=== PATIENT | female | born 1965 | race Caucasian/White ===

== ENCOUNTER 2021-03-14 17:59 | Emergency (ER) | payer OTHER ==
[2021-03-14 18:06] VITALS: BP 157/80; PULSE 80; TEMP 98.5; BMI 33.2
[2021-03-14] MEDS ORDERED: LIDOCAINE 5% TOPICAL PATCH TP ONE (19:49)
[2021-03-14] MEDS ORDERED: CYCLOBENZAPRINE HCL 10 MG TABLET (FP) PO ONE (19:49)
[2021-03-14] MEDS ORDERED: CYCLOBENZAPRINE HCL 10 MG TABLET (FP) ONE (20:10)
[2021-03-14] MEDS ORDERED: LIDOCAINE 5% TOPICAL PATCH ONE (20:10)
[2021-03-14] MEDS ORDERED: LIDOCAINE PATCH REMOVAL MC SCH (22:00)
== END 2021-03-14 20:42 | disposition home or self-care (01) ==
LOC: JERFT 17:59
DX: M54.31 Sciatica, right side (principal)
CPT/HCPCS: 99283-25

== ENCOUNTER 2025-03-07 10:55 | Day surgery (SDC) | payer OTHER ==
[2025-03-02 15:14] VITALS: BMI 37.3
[2025-03-07 11:27] VITALS: TEMP 97.6
[2025-03-07] MEDS ORDERED: LIDOCAINE HCL/PF 2% SDV 5ML VIAL ONE (12:19)
[2025-03-07 13:28] VITALS: RESP 16
[2025-03-07 13:33] VITALS: BP 133/78; PULSE 66
== END 2025-03-07 13:20 | disposition home or self-care (01) ==
LOC: FASU-ENDO 10:55
PROVIDERS: ATTEND Internal Medicine Gastroenterology
PROC: 0DB68ZX Excision of Stomach, Via Natural or Artificial Opening Endoscopic, Diagnostic (ICD-10-PCS; 2025-03-07)
PROC: 0DB58ZX Excision of Esophagus, Via Natural or Artificial Opening Endoscopic, Diagnostic (ICD-10-PCS; 2025-03-07)
PROC: 0DB98ZX Excision of Duodenum, Via Natural or Artificial Opening Endoscopic, Diagnostic (ICD-10-PCS; principal; 2025-03-07 12:32)
DX: K31.89 Other diseases of stomach and duodenum (principal); K21.00 Gastro-esophageal reflux disease with esophagitis, without bleeding; R10.13 Epigastric pain
CPT/HCPCS: 88305-TC; 88342-TC